=== PATIENT | female | born 1995 | race Caucasian/White ===

== ENCOUNTER 2018-12-28 17:03 | Outpatient (REF) | payer BC, SELFPAY ==
--- NOTE | 2018-12-28 16:00 | PAPFT_PTH ---
PATIENT: Lisa Palmer LOC: [facility] U#:[id number] AGE/SX: 23/F ROOM: RE12/28/[address]: LEYDI Ramos : 1995 BED: DIS: 12/28/2018 SPEC #: [id number] RECD: 12/28/18 17:40 STATUS: LISBET REAda #: [id number] EKTA: 12/28/18 16:[address]: Tia Ratliff DEPT: [facility] Cytology RECD BY: Jannie Flores Tissues: 1 - CX/ENDOCX FOR PAP SMEARS Procedures: PAP THIN PREP/[facility]VM Screening Comments: [id number]
== END 2018-12-28 17:23 ==
LOC: LBN 17:03
PROVIDERS: Visit Provider Nurse Practitioner Family
DX: Z12.4 Encounter for screening for malignant neoplasm of cervix (principal)
CPT/HCPCS: 88142

== ENCOUNTER 2019-12-15 08:10 | Outpatient (CLI) | payer BC, SELFPAY ==
--- NOTE | 2019-12-15 06:57 | DI.US_ITS ---
EXAM: US ABDOMEN CLINICAL HISTORY: epigastric abd pain,r10.13,r10.9,assess gallbladder TECHNIQUE: Ultrasound abdomen performed using standard protocol. COMPARISON: RIGHT BREAST ULTRASOUND from 12/09/2012 FINDINGS: LIVER: Normal. Hepatopetal flow through the portal vein. GALLBLADDER: No evidence of cholelithiasis. No evidence of wall thickening. No pericholecystic fluid identified. KIDNEYS: Kidneys are symmetric in size. No evidence of renal calculi. No evidence of hydronephrosis. No renal mass or cyst identified. BILIARY SYSTEM: Common bile duct measures 2.1 mm. No intrahepatic biliary ductal dilation. CLEMENTS'S SIGN: Negative. PANCREAS: Normal where visualized. SPLEEN: Not enlarged. ABDOMINAL AORTA AND IVC: Visualized portions normal caliber. ASCITES: None seen. IMPRESSION: Normal sonographic appearance of the upper abdomen.
--- NOTE | 2019-12-15 13:50 | DI.US_ITS ---
APPROVED REPORT EXAM: Comprehensive 2D, Doppler, and color-flow Echocardiogram Patient Location: Out-Patient Hire Car Driver: Hortensia Engel RDCS (AE) Rhythm: NSR Indications: 3/6 left sternal border cardiac murmur; ECHO 2013. R01.1 Cardiac mumur, unspecified Conclusion Left Ventricle : The left ventricle is normal size. Left ventricular systolic function is normal. Th ere is normal left ventricular wall thickness. There is normal LV segmental wall motion. The left ve ntricular diastolic function is normal. LVEF is 65-70%. Right Ventricle : The right ventricle is normal size. The right ventricular systolic function appears normal. Atria : The left atrium size is normal. The right atrium size is normal. Aortic Valve : Aortic valve appears trileaflet. No aortic regurgitation is present. There is no aorti c valvular stenosis. Mitral Valve : Mitral valve leaflets are mildly thickened. Trivial mitral regurgitation. No evidence of mitral valve stenosis. Tricuspid Valve : The tricuspid valve leaflets are mildly thickened , but open well. Mild tricuspid r egurgitation. Great Vessels : IVC is normal in size and collapses >50% with inspiration. Compared to echocardiogram dated 02/08/2013: There is no significant change. Wall motion Left Ventricle The left ventricle is normal size. Left ventricular systolic function is normal. There is normal left ventricular wall thickness. There is normal LV segmental wall motion. The left ventricular diastolic function is normal. LVEF is 65-70%. Right Ventricle The right ventricle is normal size. The right ventricular systolic function appears normal. Atria The left atrium size is normal. The right atrium size is normal. Aortic Valve Aortic valve appears trileaflet. There is no aortic valvular stenosis. No aortic regurgitation is pre sent. Mitral Valve Mitral valve leaflets are mildly thickened. No evidence of mitral valve stenosis. Trivial mitral regu rgitation. Tricuspid Valve The tricuspid valve leaflets are mildly thickened , but open well. Mild tricuspid regurgitation. Pulmonic Valve Pulmonic valve is not well visualized. Mild pulmonic regurgitation. Great Vessels The aortic root is normal in size. The ascending aorta size is normal. IVC is normal in size and blayne apses >50% with inspiration. Pericardium There is no pericardial effusion. 2D Dimensions IVSd 0.95 cm F: 0.6-1.0 LV EDV A2C 74.0 mL PWd 0.85 cm F: 0.6 - 1.0 LV EDV A4C 74.9 mL LVDd 4.05 cm F: 3.8 - 5.2 LA Volume Index Biplane 23.5 mL/m2 LVDs 2.65 cm F: 2.2 - 3.5 LA Area A4C 15.14 cm2 Aortic Root 2.25 cm F: 2.7 - 3.3 LA Area A2C 11.94 cm2 RA Area A4C 9.53 cm2 EF AP4 64.4 % LVOT 1.75 cm (M/F) 1.5-2.5 EF AP2 70.8 % Ascending Aorta 2.45 cm F: 2.3 - 3.1 EF BP 68.2 % LVEF (Teich) 63.0 % IVC 1.83 cm LVEF (Farias's) 68.20 % F: 54 - 74 TAPSE 2.33 cm (M/F) <1.7 LV Volume 62.89 mL F: 46 - 106 LV Volume Index 39.55 mL/m2 F: 29 - 61 FS 33.65 % LV Diastology MV E' medial 0.159 (>0.07 m/s) E/A Ratio 2.8 LV E/e MED 8.00 (<14) PV S/D Ratio 0.56 MV E' lateral 0.175 (>0.1 m/s) TR Peak Velocity 2.20 m/s LV E/e LAT 7.25 (<14) Pulm Vein s 0.52 m/s Pulm Vein d 0.92 m/s Pulm Vein a 0.29 m/s LA vol/ BSA A2C s A-L 18.6 mL/m2 LA vol/ BSA A4C s A-L 28.3 mL/m2 Aortic Valve LVOT Area 2.50 cm2 AoV Area Vmax 2.15 cm2 LVOT Vmax 1.24 m/s AoV Area/ BSA (Vmax) 1.35 cm2/m2 LVOT Mean Camacho. 0.88 m/s ESTEPHANIE Mean Camacho. 2.15 cm2 LVOT Peak Gr. 6.2 mmHg ESTEPHANIE Mean Camacho. Index 1.35 cm2/m2 LVOT Mean Gr. 3.5 mmHg LVOT VTI 0.237 m AoV Vmax 1.44 (0.5-1.3 m/s) AoV Mean Camacho. 1.02 m/s AoV Peak Grad 8.3 mmHg LVOT SV 59.27 mL AoV Mean Grad 4.6 (<5 mmHg) AoV VTI 0.319 (0.18-0.25 m) AoV Area VTI 1.86 (2.5-4.5 cm2) AoV Area/ BSA (VTI) 1.17 cm/m2 Mitral Valve MV E Max Camacho. 1.27 (0.4-1.3 m/s) RVOT Peak Gr. 4.53 mmHg MV A Velocity 0.45 (0.4-1.3 m/s) RVOT Mean Gr. 2.20 mmHg E/A Ratio 2.82 MV Decel. Time 164 (160-240 msec) MV PHT 47 msec MVA PHT 4.60 cm2 PV Peak Velocity 1.28 (0.5-1.5 m/s) RVOT Peak Camacho. 1.06 m/s RVOT VTI 0.233 m Tricuspid Valve TR P. Gradient 19.3 mmHg TV Regurg Vmax 2.20 m/s RAP Estimate 3.00 mmHg RVSP 22.4 mmHg
== END 2019-12-15 08:30 ==
PROVIDERS: PCP Nurse Practitioner Adult Health; Visit Provider Nurse Practitioner Adult Health
DX: R01.1 Cardiac murmur, unspecified (principal); I36.8 Other nonrheumatic tricuspid valve disorders; R10.13 Epigastric pain
CPT/HCPCS: 76700; 93306

== ENCOUNTER 2019-12-21 09:12 | Outpatient (CLI) | payer BC, SELFPAY ==
[2019-12-21 16:24] LABS: HCT 39.7 % (36.0-46.0); HGB 13.7 g/dL (12.0-15.5); Mean Corp. HGB Concentration 34.5 g/dL (32.0-36.0); Mean Corpuscular Hemoglobin 32.9 pg (27.0-33.0); Mean Corpuscular Volume 95.4 fL (80-95); Mean Platelet Volume 10.5 fL (8.0-11.0); Platelet Count 224 x1000/uL (130-400); RBC 4.16 m/cumm (4.00-5.20); White Blood Cell Count 7.87 k/cumm (4.4-10.8)
[2019-12-21 17:11] LABS: ALT 19 U/L (14-59); AST 18 U/L (15-37); Albumin 3.9 g/dL (3.4-5.0); Alkaline Phosphatase 45 U/L (46-116); Anion Gap 9.8 mmol/L (3-11); BUN 11 mg/dL (7-18); Bilirubin, Total 0.3 mg/dL (0.2-1.0); CO2 26.2 mmol/L (21.0-32.0); CREATININE 0.82 mg/dL (0.55-1.02); Calcium 8.8 mg/dL (8.5-10.1); Chloride 104 mmol/L (98-107); Glucose 95 mg/dL (74-106); Lipase 100 U/L (73-393); Potassium 4.1 mmol/L (3.5-5.1); Sodium 140 mmol/L (136-145); TSH (W/Ref FT4) 4.01 uIU/mL (0.36-3.74); Total Protein 7.1 g/dL (6.4-8.2)
[2019-12-21 17:27] LABS: FREE T4 1.09 ng/dL (0.76-1.46)
[2019-12-22 14:32] LABS: IgA 248 mg/dL (85-499); Tissue Transglutaminase IgA <1.2 U/mL (<4.0)
== END 2019-12-21 09:32 ==
PROVIDERS: PCP Nurse Practitioner Adult Health; Visit Provider Nurse Practitioner Adult Health
DX: R10.13 Epigastric pain (principal); R01.1 Cardiac murmur, unspecified
CPT/HCPCS: 36415; 80053; 82784; 83516; 83690; 85027; 84439; 84443

== ENCOUNTER 2020-05-08 13:19 | Outpatient (REF) | payer BC, SELFPAY ==
--- NOTE | 2020-05-08 13:05 | PAPFT_PTH ---
PATIENT: Lisa Palmer LOC: [facility] U#:[id number] AGE/SX: 25/F ROOM: RE05/08/[address]: LEYDI Ramos : 1995 BED: DIS: 05/08/2020 SPEC #: [id number] RECD: 05/08/20 18:12 STATUS: LISBET REQ #: [id number] EKTA: 05/08/20 13:[address]: Tia Ratliff DEPT: [facility] Cytology RECD BY: Jannie Flores ENTERED: 05/08/20 18:13 SP TYPE: PAPFT CHRISTIAN DR: Valentina Ivey APRN Tissues: 1 - CX/ENDOCX FOR PAP SMEARS Procedures: PAP THIN PREP/[facility] Screening HPV DNA PROBE Comments: [id number]
== END 2020-05-08 13:39 ==
LOC: LBN 13:19
PROVIDERS: PCP Nurse Practitioner Adult Health; Visit Provider Nurse Practitioner Family
DX: Z12.4 Encounter for screening for malignant neoplasm of cervix (principal); R87.612 Low grade squamous intraepithelial lesion on cytologic smear of cervix (LGSIL)
CPT/HCPCS: 88142; 87624

== ENCOUNTER 2020-06-26 16:34 | Outpatient (REF) | payer BC, SELFPAY ==
--- NOTE | 2020-06-26 13:45 | CER_PTH ---
PATIENT: Lisa Palmer LOC: [facility] U#:[id number] AGE/SX: 25/F ROOM: RE06/26/[address]: Leida Starks : 1995 BED: DIS: 06/26/2020 SPEC #: [id number] RECD: 06/26/20 16:44 STATUS: LISBET REQ #: [id number] EKTA: 06/26/20 13:[address]: Leida Starks DEPT: Surgical Specimen RECD BY: Rina Barone ENTERED: 06/26/20 16:48 SP TYPE: JORGE GONZALES DR: Valentina Ivey, GLENDY Tissues: 1 - CERVICAL BIOPSY 2 - CERVICAL BIOPSY 3 - ENDOCERVICAL BX/CURRETTE Procedures: GROSS AND MICRO LEVEL 4 Comments: [id number]
== END 2020-06-26 16:54 ==
LOC: LBN 16:34
PROVIDERS: PCP Nurse Practitioner Adult Health; Visit Provider Obstetrics & Gynecology Gynecology
DX: N87.0 Mild cervical dysplasia (principal); Z87.42 Personal history of other diseases of the female genital tract
CPT/HCPCS: 88305

== ENCOUNTER 2021-05-10 14:19 | Outpatient (REF) | payer OTHER, SELFPAY ==
--- NOTE | 2021-05-10 10:40 | PAPFT_PTH ---
PATIENT: Lisa Palmer LOC: [facility] U#:[id number] AGE/SX: 26/F ROOM: RE05/10/[address]: LEYDI Ramos : 1995 BED: DIS: 05/10/2021 SPEC #: [id number] RECD: 05/10/21 18:13 STATUS: LISBET REAda #: [id number] EKTA: 05/10/21 10:[address]: Tia Ratliff DEPT: [facility] Cytology RECD BY: Jannie Flores ENTERED: 05/10/21 18:14 SP TYPE: PAPFT CHRISTIAN DR: Valentina Ivey APRN Tissues: 1 - CX/ENDOCX FOR PAP SMEARS Procedures: PAP THIN PREP/[facility]VM Screening Comments: [id number]
== END 2021-05-10 14:20 | disposition home or self-care (01) ==
LOC: LBN 14:19
PROVIDERS: PCP Nurse Practitioner Adult Health; Visit Provider Nurse Practitioner Family
DX: Z12.4 Encounter for screening for malignant neoplasm of cervix (principal); Z87.42 Personal history of other diseases of the female genital tract; R87.612 Low grade squamous intraepithelial lesion on cytologic smear of cervix (LGSIL)
CPT/HCPCS: 88142

== ENCOUNTER 2021-06-18 15:53 | Outpatient (REF) | payer OTHER, SELFPAY ==
--- NOTE | 2021-06-18 15:15 | ENDO_PTH ---
PATIENT: Lisa Palmer LOC: [facility] U#:[id number] AGE/SX: 26/F ROOM: RE06/18/[address]: Leida Starks : 1995 BED: DIS: 06/18/2021 SPEC #: [id number] RECD: 06/18/21 17:54 STATUS: LISBET ATKINSON #: [id number] EKTA: 06/18/21 15:[address]: Leida Starks DEPT: Surgical Specimen RECD BY: Jannie Flores ENTERED: 06/18/21 17:56 SP TYPE: Endo OTHR DR: Valentina Ivey APRN Tissues: 1 - ENDOCERVICAL BX/CURRETTE 2 - CERVICAL BIOPSY 3 - CERVICAL BIOPSY Procedures: GROSS AND MICRO LEVEL 4 P16 IPEX Comments: [id number]
== END 2021-06-18 15:54 | disposition home or self-care (01) ==
LOC: LBN 15:53
PROVIDERS: PCP Nurse Practitioner Adult Health; Visit Provider Obstetrics & Gynecology Gynecology
DX: N88.8 Other specified noninflammatory disorders of cervix uteri (principal); N87.9 Dysplasia of cervix uteri, unspecified; R87.612 Low grade squamous intraepithelial lesion on cytologic smear of cervix (LGSIL)
CPT/HCPCS: 88305; 88342

== ENCOUNTER 2021-10-20 19:29 | Emergency (ER) | payer OTHER, SELFPAY ==
[2021-10-20 19:35] VITALS: BP 137/86; PULSE 79; RESP 16; TEMP 37.1; O2SAT 100
--- NOTE | 2021-10-20 19:45 | DI.RAD_ITS ---
Exam(s) XR WRIST RT COMPLETE EXAM: XR WRIST RT COMPLETE CLINICAL HISTORY: pain and swelling. TECHNIQUE: 2D digital imaging was performed of the right wrist. Three views were obtained. PA, lat eral and oblique views were obtained. COMPARISON: No exams were available for comparison FINDINGS: BONES: There is an acute nondisplaced fracture of the tip of the ulnar styloid process. There is an acute transverse fracture through the distal metaphysis of the right radius. The fracture does not a ppear to extend into the radiocarpal joint. There is mild anterior displacement of the distal fractu re noted. No bony destructive lesion is seen. JOINTS: The carpal bones are normally aligned. SOFT TISSUE: Normal. IMPRESSION: Distal radial and ulnar fractures as described above. DATA REPOSITORY: RADIATION DOSE DELIVERED:
--- NOTE | 2021-10-20 20:45 | DI.VRAD_ITS ---
PROCEDURE INFORMATION: Exam: XR Right Wrist Exam date and time: 10/20/2021 7:47 PM Age: 26 years old Clinical indication: Wrist; Right; Patient HX: Pain and swelling TECHNIQUE: Imaging protocol: XR Right wrist. Views: 3 or more views. COMPARISON: No relevant prior studies available. FINDINGS: There is a fracture of the distal radius. There is slight cortical offset. There is no significant angulation. There is a fracture involving the ulnar styloid. There is normal alignment the of the carpal bones. IMPRESSION: 1. Fracture distal radius. 2. Fracture ulnar styloid. Dictated and Authenticated by: Spencer Jade MD. Ordering:NIELS Valderrama MD
--- NOTE | 2021-10-20 22:42 | ED.GENADUL_ITS ---
Discharge Plan Disposition Patient Disposition: HOME Condition: Good Discharge Details Clinical Impression: Fracture of wrist Primary Care Provider: Valentina Ivey ED Provider: Jannie Matias Home Meds and New Rx's Prescriptions: No Action norgestimate-ethinyl estradiol [Sprintec (28)] 0.25-35 mg-mcg tablet 1 tab PO DAILY Qty: 84 RF: 3 Discharge Instructions Instructions: Wrist Fracture in Adults (ED) Additional Instructions: ice, ibuprofen 600 mg every 8 hours with food as needed for pain Tylenol 650 every 4-6 hours as needed breakthrough pain Follow-up with orthopedics on Friday for reassessment Keep your splint in place and keep it dry Return with sensation change, worsening pain, or with any new or progressing symptoms Stand Alone Forms: Work Release Referrals: Valentina Ivey [employer]PERVISOR [Primary Care Provider] - Stevie Lai MD [ [facility]] - Medical Decision Making Patient placed in Velcro wrist splint Referred to orthopedic for a fracture to radius and ulna on x-ray of right wrist per my interpretation and radiology review Ibuprofen and Tylenol for pain control Ice and elevation Work note supplied Return precautions discussed and patient expressed understanding HPI General Mode of arrival: ambulatory . Date/Time Provider Initiated Documentation: 10/20/21 19:29 . Limitations to Documentation: no limitations . Information obtained by: patient . HPI Narrative: This 26-year-old female presents with report of fall. She reportedly slipped on ice landing on her right wrist. Denies chance of or strength or sensation change. De nies any additional complaints this time. Specifically denies any right elbow pain Related Data Home Medications Medication Instructions Recorded Confirmed norgestimate 0.25 mg-ethinyl 1 tab PO DAILY #84 tab 05/10/21 10/20/21 estradiol 35 mcg tablet Previous Rx's Medication Instructions Recorded norgestimate 0.25 mg-ethinyl 1 tab PO DAILY #84 tab 05/10/21 estradiol 35 mcg tablet Allergies Allergy/AdvReac Type Severity Reaction Status Date / Time No Known Drug Allergies Allergy Verified 10/20/21 19:38 General Stated Complaint: Orthopedic FORREST: 3 Review of Systems Narrative: Review of systems obtained x3 and negative aside from indication in HPI PFSH All Active Problems (Updated 10/20/21 @ 20:23 by ANGELICA Benavides) Fracture of wrist (Acute) Counseled about COVID-19 virus infection (Acute) Abnormal Pap smear of cervix (Acute) Subclinical hypothyroidism (Chronic) Scoliosis (Chronic) Cardiac murmur (Chronic) Contraception (Acute 12/15/15) Medical History (Updated 10/20/21 @ 20:23 by ANGELICA Benavides) Abdominal pain Surgical History (Updated 12/09/19 @ 11:43 by Valentina Ivey NP) H/O wisdom tooth extraction Repair of umbilical hernia in childhood S/P excision of fibroadenoma of breast Right, Dr. Velasquez removed, ~2013 Social History (Updated 06/18/21 @ 15:39 by Leida Starks MD) Smoking/Tobacco Use Status: Never Smoking risk assessment performed?: Yes Alcohol Intake: current Alcohol Intake frequency: a few times a month Drug use: Never Substance use type: does not use Adopted: No Caregiver/Support person: No Foster care: No Household members: family and other Details: - Lucho x4mo. Number of Children: 0 Communication Needs: None Do you need help understanding health information?: Never current occupation: [employer] Sexually active: Yes Do you think of yourself as: straight/heterosexual Current gender identity: female What type of physical activity do you participate in: none Seatbelt use: always Water heater temp set <120 deg: Yes Working smoke detector in home: Yes Fire extinguisher in home: Yes Carbon monox detector in home: Yes Firearms in home: Yes Firearms unloaded and locked: Yes Do you feel safe at home: Yes Do you feel safe in your relationship?: Yes Female Reproductive History Menstrual control method: pills History History 0 Para Hx # Term Pregnancies Multiple births Hx # Pregnancies Ectopic pregnancies AB induced Hx Number of Living Children AB spontaneous Exam Extrem Elbow/forearm/wrist images: 1. Swelling and tenderness noted, neurovascularly intact, distal pulses intact, no tenderness to right elbow or hand Course Vital Signs Vital signs: Vital Signs Temperature 37.1 C 10/20/21 19:35 Pulse 79 10/20/21 19:35 Respiratory Rate 16 10/20/21 19:35 Blood Pressure 137/86 10/20/21 19:35 Pulse Oximetry 100 10/20/21 19:35 Temperature 37.1 C 10/20/21 19:35 Temperature Source Temporal Artery Scan 10/20/21 19:35 Pulse 79 10/20/21 19:35 Respiratory Rate 16 10/20/21 19:35 Blood Pressure 137/86 10/20/21 19:35 Blood Pressure Position Supine 10/20/21 19:35 Pulse Oximetry 100 10/20/21 19:35 Oxygen Delivery Method Room Air 10/20/21 19:35 Oxygen Flow Rate 0 10/20/21 19:35 Pain Level 7 10/20/21 19:39
== END 2021-10-20 20:29 | disposition home or self-care (01) ==
PROVIDERS: Emergency Provider Physician Assistant; PCP Nurse Practitioner Adult Health
DX: S52.91XA Unspecified fracture of right forearm, initial encounter for closed fracture (principal); S52.291A Other fracture of shaft of right ulna, initial encounter for closed fracture; W18.39XA Other fall on same level, initial encounter
CPT/HCPCS: 29125; 99283; 73110

== ENCOUNTER 2021-10-29 15:01 | Outpatient (CLI) | payer OTHER, SELFPAY ==
--- NOTE | 2021-10-29 14:45 | DI.RAD_ITS ---
Exam(s) XR WRIST RT LIMITED EXAM: XR WRIST RT LIMITED INDICATION: F/U R WRIST FRACTURE. COMPARISON: CR,XR XR WRIST RT COMPLETE from 10/20/2021 TECHNIQUE: 2D digital imaging was performed. Two views. FINDINGS: No change in alignment of the distal radial fracture which shows some increased healing when compared with the previous exam. New abnormalities. DATA REPOSITORY: RADIATION DOSE DELIVERED:
== END 2021-10-29 15:02 | disposition home or self-care (01) ==
LOC: DIORS 15:01
PROVIDERS: PCP Nurse Practitioner Adult Health; Visit Provider Physician Assistant Surgical
DX: S52.614D Nondisplaced fracture of right ulna styloid process, subsequent encounter for closed fracture with routine healing (principal); S52.591D Other fractures of lower end of right radius, subsequent encounter for closed fracture with routine healing; W19.XXXD Unspecified fall, subsequent encounter
CPT/HCPCS: 73100

== ENCOUNTER 2021-12-03 15:00 | Outpatient (CLI) | payer OTHER, SELFPAY ==
--- NOTE | 2021-12-03 14:45 | DI.RAD_ITS ---
Exam(s) XR WRIST RT LIMITED EXAM: XR WRIST RT LIMITED CLINICAL HISTORY: right wrist fracture. TECHNIQUE: 2D digital imaging was performed. COMPARISON: CR XR WRIST RT LIMITED from 10/29/2021 FINDINGS: Stable appearance of the fracture site the distal radius, mildly impacted. Mild healing. No signifi cant ulnar variance. IMPRESSION: DATA REPOSITORY: RADIATION DOSE DELIVERED:
== END 2021-12-03 15:01 | disposition home or self-care (01) ==
LOC: DIORS 15:01
PROVIDERS: PCP Nurse Practitioner Adult Health; Referring Provider Nurse Practitioner Adult Health; Visit Provider Physician Assistant
DX: S52.591D Other fractures of lower end of right radius, subsequent encounter for closed fracture with routine healing (principal); W00.0XXD Fall on same level due to ice and snow, subsequent encounter
CPT/HCPCS: 73100

== ENCOUNTER 2022-01-14 15:16 | Outpatient (CLI) | payer OTHER, SELFPAY ==
--- NOTE | 2022-01-14 14:45 | DI.RAD_ITS ---
Exam(s) XR WRIST RT LIMITED EXAM: XR WRIST RT LIMITED INDICATION: right distal radius fracture. COMPARISON: CR XR WRIST RT LIMITED from 10/29/2021 CR XR WRIST RT LIMITED from 12/03/2021. Two views TECHNIQUE: 2D digital imaging was performed. FINDINGS: There is has been interval increase in healing at the previously noted distal radial fracture. No ne w abnormalities. DATA REPOSITORY: RADIATION DOSE DELIVERED:
== END 2022-01-14 15:17 | disposition home or self-care (01) ==
LOC: DIORS 15:17
PROVIDERS: PCP Nurse Practitioner Adult Health; Visit Provider Physician Assistant
DX: S52.591D Other fractures of lower end of right radius, subsequent encounter for closed fracture with routine healing (principal); W00.0XXD Fall on same level due to ice and snow, subsequent encounter
CPT/HCPCS: 73100

== ENCOUNTER 2022-06-20 14:24 | Outpatient (REF) | payer OTHER, SELFPAY ==
--- NOTE | 2022-06-20 14:00 | PAPFT_PTH ---
PATIENT: Lisa Palmer LOC: [facility] U#:[id number] AGE/SX: 27/F ROOM: RE06/20/[address]: LEYDI Ramos : 1995 BED: DIS: 06/20/2022 SPEC #: [id number] RECD: 06/20/22 18:11 STATUS: LISBET REQ #: [id number] EKTA: 06/20/22 14:[address]: Tia Ratliff DEPT: [facility] Cytology RECD BY: Jannie Flores ENTERED: 06/20/22 18:12 SP TYPE: PAPFT OTHR DR: Valentina Ivey APRN Tissues: 1 - CX/ENDOCX FOR PAP SMEARS Procedures: PAP THIN PREP/[facility] Screening HPV DNA PROBE Comments: [id number]
== END 2022-06-20 14:25 | disposition home or self-care (01) ==
LOC: LBN 14:24
PROVIDERS: PCP Nurse Practitioner Adult Health; Visit Provider Nurse Practitioner Family
DX: Z12.4 Encounter for screening for malignant neoplasm of cervix (principal); R87.610 Atypical squamous cells of undetermined significance on cytologic smear of cervix (ASC-US); Z11.51 Encounter for screening for human papillomavirus (HPV); R87.810 Cervical high risk human papillomavirus (HPV) DNA test positive
CPT/HCPCS: 88142; 87624

== ENCOUNTER 2022-07-17 15:51 | Outpatient (REF) | payer OTHER, SELFPAY ==
--- NOTE | 2022-07-17 15:00 | ENDO_PTH ---
PATIENT: Lisa Palmer LOC: [facility] U#:[id number] AGE/SX: 27/F ROOM: RE07/17/[address]: Annetta Garcia DO : 1995 BED: DIS: 07/17/2022 SPEC #: [id number] RECD: 07/17/22 16:48 STATUS: LISBET RE #: [id number] EKTA: 07/17/22 15:[address]: Annetta Garcia DEPT: Surgical Specimen RECD BY: Jannie Flores ENTERED: 07/17/22 16:50 SP TYPE: Endo OTHR DR: Valentina Ivey APRN Tissues: 1 - ENDOCERVICAL BX/CURRETTE 2 - CERVICAL BIOPSY Procedures: GROSS AND MICRO LEVEL 4 Comments: [id number]
== END 2022-07-17 15:52 | disposition home or self-care (01) ==
LOC: LBN 15:51
PROVIDERS: PCP Nurse Practitioner Adult Health; Visit Provider Obstetrics & Gynecology
DX: R87.618 Other abnormal cytological findings on specimens from cervix uteri (principal)
CPT/HCPCS: 88305

== ENCOUNTER 2023-08-07 15:41 | Outpatient (REF) | payer OTHER, SELFPAY ==
--- NOTE | 2023-08-07 15:30 | PAPFT_PTH ---
PATIENT: Lisa Palmer LOC: [facility] U#:[id number] AGE/SX: 28/F ROOM: RE08/07/[address]: Denisha Oliver MD : 1995 BED: DIS: 08/07/2023 SPEC #: [id number] RECD: 08/07/23 17:59 STATUS: LISBET REAda #: [id number] EKTA: 08/07/23 15:[address]: Densiha Oliver DEPT: [facility] Cytology RECD BY: Jannie Flores ENTERED: 08/07/23 17:59 SP TYPE: PAPFT CHRISTIAN DR: Valentina Ivey APRN Tissues: 1 - CX/ENDOCX FOR PAP SMEARS Procedures: PAP THIN PREP/UVM Screening Comments: [id number]
== END 2023-08-07 15:42 | disposition home or self-care (01) ==
LOC: LBN 15:41
PROVIDERS: PCP Nurse Practitioner Adult Health; Visit Provider Obstetrics & Gynecology
DX: Z12.4 Encounter for screening for malignant neoplasm of cervix (principal)
CPT/HCPCS: 88142

== ENCOUNTER 2024-08-16 08:54 | Outpatient (REF) | payer OTHER, SELFPAY ==
--- NOTE | 2024-08-16 08:30 | PAPFT_PTH ---
PATIENT: Lisa Palmer LOC: [facility] U#:[id number] AGE/SX: 29/F ROOM: RE08/16/[address]: Sarita Bob NP : 1995 BED: DIS: 08/16/2024 SPEC #: [id number] RECD: 08/16/24 13:18 STATUS: LISBET REAda #: [id number] EKTA: 08/16/24 08:[address]: Sarita Bob NP DEPT: [facility] Cytology RECD BY: Jannie Flores ENTERED: 08/16/24 13:18 SP TYPE: PAPFT OTHR DR: Valentina Ivey APRN Tissues: 1 - CX/ENDOCX FOR PAP SMEARS Procedures: PAP THIN PREP/[facility]VM Screening HPV DNA PROBE Comments: [id number] (HPV 16 & 18/45)
== END 2024-08-16 08:55 | disposition home or self-care (01) ==
LOC: LBN 08:54
PROVIDERS: PCP Nurse Practitioner Adult Health; Visit Provider Nurse Practitioner Women's Health
DX: Z12.4 Encounter for screening for malignant neoplasm of cervix (principal)
CPT/HCPCS: 88142; 87624

== ENCOUNTER 2024-10-15 15:03 | Outpatient (REF) | payer OTHER, SELFPAY ==
[2024-10-16 11:31] LABS: Campylobacter PCR Negative (Negative); Salmonella PCR Negative (Negative); Shiga Toxin PCR Negative (Negative); Shigella/Enteroinvasive Ecoli Negative (Negative)
[2024-10-20 18:52] LABS: Calprotectin <50.0 mcg/g
== END 2024-10-15 15:04 | disposition home or self-care (01) ==
LOC: LBN 15:03
PROVIDERS: PCP Nurse Practitioner Adult Health; Visit Provider Nurse Practitioner Family
DX: R19.5 Other fecal abnormalities (principal); R14.0 Abdominal distension (gaseous)
CPT/HCPCS: 87505; 82272; 83630; 83993; 87177

== ENCOUNTER 2024-10-18 02:48 | Outpatient (CLI) | payer OTHER, SELFPAY ==
[2024-10-18 16:05] LABS: Abs Immature Grans 0.02 10^3/uL (0.0-0.06); Absolute Basophil Count 0.03 10^3/uL (0.0-0.2); Absolute Eosinophil Count 0.12 10^3/uL (0.0-0.7); Absolute Lymphocyte Count 3.55 10^3/uL (1.2-3.4); Absolute Monocyte Count 0.62 10^3/uL (0.1-0.8); Absolute Neutrophil Count 3.75 10^3/uL (1.2-6.7); Basophils % 0.4 %; Eosinophils % 1.5 %; HCT 43.4 % (36.0-46.0); HGB 14.6 g/dL (11.2-15.7); Immature Grans % 0.2 %; Lymphocytes % 43.9 %; MCH 32.4 pg (27.0-33.0); MCHC 33.6 % (32.0-36.0); MCV 96 fL (80-95); MPV 9.9 fL (8.0-11.0); Monocytes % 7.7 %; Neutrophils % 46.3 %; Platelet Count 223 10^3/uL (130-400); RBC 4.51 10^6/uL (3.93-5.22); RDW 11.5 % (11.7-14.6); RDW-SD 40.6 fL; WBC 8.09 10^3/uL (4.4-10.8)
[2024-10-18 16:44] LABS: ESR 1 mm/hr (0-20)
[2024-10-18 17:10] LABS: Lipase 31 U/L (<78)
[2024-10-18 17:23] LABS: Iron 127 ug/dL (50-170); Total Iron Binding Capacity 272 ug/dL (250-450); Transferrin Sat 47 % (15-50)
[2024-10-18 17:31] LABS: ALT 16 U/L (14-59); AST 15 U/L (15-37); Albumin 4.3 g/dL (3.4-5.0); Alkaline Phosphatase 60 U/L (46-116); Bilirubin, Direct 0.1 mg/dL (0.0-0.2); Bilirubin, Total 0.26 mg/dL (0.2-1.0); Ferritin 47 ng/mL (8-252)
[2024-10-18 17:32] LABS: C-Reactive Protein < 0.50 mg/dL (<or=0.5)
[2024-10-20 11:13] LABS: IgA 291 mg/dL (85-499); Interpretation (See Note); Tissue Transglutaminase IgA <4.0 CU (<20.0)
== END 2024-10-18 02:49 | disposition home or self-care (01) ==
LOC: LBO 02:48
PROVIDERS: PCP Nurse Practitioner Adult Health; Referring Provider Nurse Practitioner Family; Visit Provider Nurse Practitioner Family
DX: R19.5 Other fecal abnormalities (principal)
CPT/HCPCS: 36415; 80076; 82784; 83516; 83690; 85652; 82728; 83540; 83550; 85025; 86140

== ENCOUNTER 2025-08-16 15:07 | Outpatient (REF) | payer OTHER, SELFPAY ==
--- NOTE | 2025-08-16 14:35 | PAPFT_PTH ---
PATIENT: Lisa Palmer LOC: [facility] U#:[id number] AGE/SX: 30/F ROOM: RE08/16/[address]: Sarita Bob NP : 1995 BED: DIS: 08/16/2025 SPEC #: [id number] RECD: 08/16/25 17:48 STATUS: LISBET REAda #: [id number] EKTA: 08/16/25 14:[address]: Sarita Bob NP DEPT: [facility] Cytology RECD BY: Jannie Flores ENTERED: 08/16/25 17:48 SP TYPE: PAPFT OTHR DR: Valentina Ivey APRN Tissues: 1 - CX/ENDOCX FOR PAP SMEARS Procedures: PAP THIN PREP/UVM Screening HPV DNA PROBE Comments: [id number] (HPV 16 & 18/45)
== END 2025-08-16 15:08 | disposition home or self-care (01) ==
LOC: LBN 15:07
PROVIDERS: PCP Nurse Practitioner Adult Health; Visit Provider Nurse Practitioner Women's Health
DX: Z12.4 Encounter for screening for malignant neoplasm of cervix (principal)
CPT/HCPCS: 88142; 87624

== ENCOUNTER 2025-09-02 03:14 | Outpatient (CLI) | payer OTHER, SELFPAY ==
--- NOTE | 2025-09-02 | DI.US_ITS ---
Exam(s) US BREAST LT COMPLETE US BREAST RT COMPLETE MG MAMMO DIAGNOSTIC BI EXAM: MG MAMMO DIAGNOSTIC BI CLINICAL HISTORY: Mass at 9:00 right breast,S/P EXCISION FIBROADENOMA OF BREAST,N63.10,Z86.01. TECHNIQUE: Craniocaudal and mediolateral oblique Full Field Digital Mammography views of both breasts with Computer Aided Diagnosis followed by Tomosynthesis and bilateral breast ultrasound. COMPARISON: US US BREAST LT COMPLETE from 09/02/2025 US US BREAST RT COMPLETE from 09/02/2025 FINDINGS: RIGHT BREAST: Mammography/Tomosynthesis: Masses/Architectural Distortion: 3.7 centimeter circumscribed area of nodularity in the superior right breast. This corresponds to the palpable abnormality. Microcalcifictions: No suspicious pleomorphic-type are seen. Skin Thickening/Nipple Retraction: None. Right breast US: Echotexture: Normal appearance of the glandular tissue. Shadowing: No suspicious foci. Cyst: There are few small cysts. Solid lesions: 3.7 by 3.3 x 2.5 centimeter hypoechoic circumscribed nodule in the 11 o'clock position 3 cm from the nipple. There is internal vascularity. No abnormal shadowing. No associated calcifications are visible. The findings are consistent with a fibroadenoma. There are several other smaller fibroadenomas noted throughout the breast. Ductal dilation: None. Axilla: No adenopathy. LEFT BREAST: Mammography/Tomosynthesis: Masses/Architectural Distortion: 2.5 centimeter circumscribed nodule in the subareolar region of the left breast. Microcalcifictions: No suspicious pleomorphic-type are seen. Skin Thickening/Nipple Retraction: None. Left breast ultrasound: Echotexture: Normal appearance of the glandular tissue. Shadowing: No suspicious foci. Cyst: None. Solid lesions: Smoothly marginated uniformly hypoechoic she lesion measuring 1.9 x 1.2 by 1.9 cm. No posterior shadowing. Findings consistent with a fibroadenoma. There are other smaller areas of nodularity throughout the breast measuring less than 1 cm which also likely represent small fibroadenomas. Ductal dilation: None. Axilla: No evidence of adenopathy. IMPRESSION: 1. Right breast: 3.7 centimeter circumscribed lesion likely represents a fibroadenoma. However due to size and vascularity, biopsy or excision could should be considered. 2. Left breast: No evidence of malignancy is noted. 1.9 centimeter nodule consistent with a fibroadenoma. 3. The findings were discussed with the patient and Dr. Oliver on the date of the examination. BI-RADS Category 4 - Suspicious Abnormality: Biopsy should be considered Breast Density - Category C - The breast are heterogeneously dense, which may obscure small masses. Breast density Category C or D implies that the patient has dense breast tissue. Dense breast tissue can make it harder to find cancer on a mammogram. Dense breast tissue is also associated with an increased risk of breast cancer. This information about the result of the mammogram report was provided to the patient to raise their awareness. Use this report when you speak with the patient about their risks for breast cancer, which includes their family history. At that time, you may recommend additional screening tests (Ultrasound or MRI) as these tests may add significant information. A negative radiographic report should not delay biopsy if a dominant or clinically suspicious mass is present. Up to ten percent of cancers are not identified on mammography. A negative report may reinforce clinical impression. Adenosis and dense breasts may obscure an underlying neoplasm. False positive reports average 6 to 10%. Patient will receive a letter notifying them of these results.
== END 2025-09-02 03:34 ==
LOC: DI 03:14
PROVIDERS: PCP Nurse Practitioner Adult Health; Visit Provider Nurse Practitioner Women's Health
DX: N63.10 Unspecified lump in the right breast, unspecified quadrant (principal); Z98.890 Other specified postprocedural states; Z86.018 Personal history of other benign neoplasm; Z12.31 Encounter for screening mammogram for malignant neoplasm of breast
CPT/HCPCS: 76642; 77062; 77066; G0279